=== PATIENT | male | born 1985 | race Caucasian/White ===

== ENCOUNTER → 2021-05-04 | Day surgery (SDC) | payer OTHER ==
[~2021-05-04] VITALS: Ht 177.8 cm; Wt 181.4 kg
[~2021-05-04] MED LIST: BENAZEPRIL-HCT1 EACH PO; BUSPIRONE HCL10 MG PO; COLACE100 MG PO; NORCO 5-325 TA1 EACH PO; TESSALON PERLE100 MG PO; VENTOLIN HFA18 GM INH
[2021-05-04 08:49] LABS: HCT 42.1 % (42.0-52.0); MCH 27.8 pg (25.0-31.0); MCHC 33.3 g/dL (32.0-36.0); MCV 83.7 fL (78.0-100.0); MPV 9.2 fL (6.0-9.5); RBC 5.03 M/uL (4.70-6.00); RDW 13.7 % (11.5-14.0); WBC 9.2 K/uL (4.0-10.5)
[2021-05-04 09:16] LABS: ALBUMIN 3.7 g/dL (3.4-5.0); BILIRUBIN - TOTAL 0.5 mg/dL (0.2-1.0); BUN/CREAT RATIO (CALC) 13.6 RATIO; CREATININE 0.88 mg/dL (0.67-1.17); GLOBULIN (CALCULATION) 3.9 g/dL; TOTAL PROTEIN 7.6 g/dL (6.4-8.2)
== END | disposition home or self-care (01) ==
LOC: FAS 07:50
PROVIDERS: Surgery
DX: L98.8 Other specified disorders of the skin and subcutaneous tissue (principal); L85.9 Epidermal thickening, unspecified; M19.90 Unspecified osteoarthritis, unspecified site; J45.909 Unspecified asthma, uncomplicated; I10 Essential (primary) hypertension; K58.9 Irritable bowel syndrome, unspecified; F17.210 Nicotine dependence, cigarettes, uncomplicated; F10.11 Alcohol abuse, in remission; E80.4 Gilbert syndrome; E66.01 Morbid (severe) obesity due to excess calories; Z68.43 Body mass index [BMI] 50.0-59.9, adult; Z79.899 Other long term (current) drug therapy; Z88.1 Allergy status to other antibiotic agents; Z98.84 Bariatric surgery status
CPT/HCPCS: 36415; 80053; 93005; J1100; J1885; J2250; J2405; J2704; J3010; J7120